=== PATIENT | male | born 1980 | race Caucasian/White ===

== ENCOUNTER 2021-01-07 13:44 | Observation (INO) ==
[2021-01-07] MEDS ORDERED: SALINE 3% 15 ML NEB TX ONE (17:47)
[2021-01-07] MEDS ORDERED: DUONEB 0.5 MG/3 MG (3 mL) NEB ONE (17:47)
[2021-01-07] MEDS ORDERED: NS 1000 ML 1,000 ML IV SCH (18:25)
[2021-01-07] MEDS ORDERED: NS 1000 ML 1,000 ML ONE (18:28)
[2021-01-07 18:48] LABS: ABG BASE EXCESS 3.7 mmol/L (-2.0-2.0); ABG HCO3 27.7 mmol/L (22-26)
[2021-01-07 18:49] LABS: ABG ALLEN TEST POS
[2021-01-07] MEDS: DUONEB 0.5 MG/3 MG (3 mL) NEB SCH (18:52)
[2021-01-07 19:12] LABS: BASOPHILS # (AUTO) 0.1 X10^3/uL (0.0-0.1); BASOPHILS % (AUTO) 0.4 % (0.2-1.0); EOSINOPHILS # (AUTO) 0.2 x10^3/uL (0.0-0.2); HEMATOCRIT 45.6 % (42.0-54.0); HEMOGLOBIN 15.3 g/dL (13.5-18.0); LYMPHOCYTES % (AUTO) 11.5 % (21.0-51.0); MEAN CORPUSCULAR HEMOGLOBIN 28.3 pg (27.0-34.0); MEAN CORPUSCULAR HGB CONC 33.6 g/dL (33.0-35.0); MEAN CORPUSCULAR VOLUME 84.1 fL (80.0-100.0); MEAN PLATELET VOLUME 7.7 fL (7.4-11.0); MONOCYTES # (AUTO) 1.1 x10^3/uL (0.3-0.8); MONOCYTES % (AUTO) 6.4 % (0.0-13.0); NEUTROPHILS # (AUTO) 13.9 x10^3/uL (2.2-4.8); NEUTROPHILS % (AUTO) 80.7 % (42.0-75.0); PLATELET COUNT 232 X10^3/uL (150.0-450.0); RED BLOOD COUNT 5.43 X10^6/uL (4.7-6.0); RED CELL DISTRIBUTION WIDTH 15.9 % (11.6-16.5); WHITE BLOOD COUNT 17.3 X10^3/uL (3.6-10.0)
[2021-01-07] MEDS ORDERED: PULMICORT NEB TX 0.5 MG NEB ONE (19:32)
[2021-01-07 19:36] LABS: ALANINE AMINOTRANSFERASE 52 Units/L (12-78); ALBUMIN 3.8 g/dL (3.4-5.0); ALKALINE PHOSPHATASE 150 Units/L (46-116); ASPARTATE AMINO TRANSFERASE 79 Units/L (15-37); BLOOD UREA NITROGEN 10 mg/dL (7-18); CALCIUM 9.1 mg/dL (8.5-10.1); CARBON DIOXIDE 25.7 mmol/L (21-32); CHLORIDE 103 mmol/L (98-107); CREATININE 1.38 mg/dL (0.70-1.30); FREE T4 (FREE THYROXINE) 0.79 ng/dL (0.76-1.46); SODIUM 141 mmol/L (136-145); TOTAL PROTEIN 8.2 g/dL (6.4-8.2); TSH (3RD GENERATION) 3.639 uIU/mL (0.358-3.74); eGFR NON BLACK RACES > 60 (>60)
[2021-01-07] MEDS: PULMICORT NEB TX 0.5 MG NEB SCH (20:15)
[2021-01-07] MEDS ORDERED: ELAVIL PO SCH (21:00)
[2021-01-07] MEDS ORDERED: VISTARIL PO SCH (21:00)
--- NOTE | 2021-01-07 21:28 | DR.H&P ---
H&P - History & Physical for Day of: H&P Date: 01/07/21 - History of Present Illness History of Present Illness: Patient is a 40 year old white male that presents to the [facility] office with reports cough x2 months. States that he has been coughing up blood tinged sputum. Reports that he has been feeling like food is stuck in his throat. States that he has been elevating his head up after eating and throughout the night. States that he has been coughing worse w henever he takes a deep breath in. CT Chest does reveal reveal complete atelectasis oat the posterior segment of the left lower lobe. ossible left lower hilar mass measuring 3cm. Possible subcarinal mass is seen measuring 5.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 Patient has history of 2PPD tobacco use. Denies any other complaints. - Past Medical History Past Medical History: Hypertension - Family History Family Medical History: Diabetes Mellitus, [place], Sudden Cardiac - Social History Does patient currently use any type of tobacco product: Yes Have you used tobacco products in the last 12 months: Yes Type of Tobacco Use: Cigarettes How many years tobacco product used: 30 Does any household member use tobacco: Yes Alcohol Use: None Drug Use: Prescription Drugs Risks, benefits, and alternatives of opioids discussed: No Prescription drug monitoring program results: PDMP reviewed and no concerns identified - Medications Home Medications: povidone-iodine [From Betadine] Allergy (Mild, Verified 01/07/21 19:11) RASH shrimp Allergy (Mild, Verified 01/07/21 19:11) soap [From Betadine] Allergy (Mild, Verified 01/07/21 19:11) RASH - Review of Systems Constitutional: Malaise Eyes: No Symptoms Reported ENT: No Symptoms Reported Respiratory: Cough, Shortness of Breath Cardiovascular: No Symptoms Reported Gastrointestinal: No Symptoms Reported Genitourinary: No Symptoms Reported Musculoskeletal: No Symptoms Reported Skin: No Symptoms Reported Neurological: No Symptoms Reported - Physical Exam Vital Signs: Temperature 98.3 F Pulse Rate [Right] 97 Pulse Rate 107 Respiratory Rate 20 Blood Pressure [Left Arm] 136/96 O2 Sat by Pulse Oximetry 97 Oriented: Normal Eyes: Normal Ear: Normal Nose: Normal Throat: Normal Respiratory: LLL Diminished Cardiovascular: Normal : Normal Auscultation: Bowel Sounds: Normal Palpation: Normal Tenderness: Normal Skin: Normal Musculoskeletal: Normal Psychiatric: Normal Mood Description: Calm Affect: Normal Speech Pattern: Clear - Assessment/Plan (1) Lung mass Status: Acute Plan: Pulmonology consult (2) Hemoptysis Status: Acute (3) Mass of both adrenal glands Status: Acute (4) Tobacco use Status: Acute Plan: Tobacco Cessation - Review H&P Reviewed: Yes Patient was examined?: Yes - Allergies Allergies/Adverse Reactions: Allergies Allergy/AdvReac Type Severity Reaction Status Date / Time povidone-iodine Allergy Mild RASH Verified 01/07/21 19:11 [From Betadine] shrimp Allergy Mild Verified 01/07/21 19:11 soap [From Betadine] Allergy Mild RASH Verified 01/07/21 19:11
--- NOTE | 2021-01-07 22:46 | RAD ---
EXAM: CHEST X-RAYHISTORY: Shortness of breath. COPD.TECHNIQUE: AP chest x-ray dated January 07, 2021 at 6:34 PM.COMPARISON: None available.FINDINGS:The heart size and mediastinum are within normal limits. The lung mora and costophrenic angles are clear. There is no acute parenchymal infiltrate, pleural effusion, or pneumothorax seen. The visualized bony structures are within normal limits.IMPRESSION:1. No evidence for acute cardiopulmonary disease seen.Electronically signed by: Teressa Gastelum (Jan 07, 2021 22:44:06)
[2021-01-08] MEDS: DUONEB 0.5 MG/3 MG (3 mL) NEB SCH ×4 (00:02→16:02)
[2021-01-08 04:50] LABS: BILIRUBIN,URINE NEGATIVE (NEGATIVE); BLOOD/HEMOGLOBIN,URINE 4+ (NEGATIVE); GLUCOSE, URINE NEGATIVE (NEGATIVE); KETONES,URINE NEGATIVE (NEGATIVE); LEUKOCYTE ESTERASE ,URINE NEGATIVE (NEGATIVE); NITRITES,URINE NEGATIVE (NEGATIVE); PROTEIN,URINE 2+ (NEGATIVE); UROBILINOGEN,URINE NORMAL (NORMAL)
[2021-01-08 04:54] LABS: APPEARANCE,URINE CLEAR (CLEAR); BACTERIA,URINE TRACE /HPF (NEGATIVE); COLOR,URINE YELLOW (YELLOW); SQUAMOUS EPITHELIAL CELL,UR FEW /HPF (NEGATIVE)
[2021-01-08 06:28] LABS: BASOPHILS # (AUTO) 0.1 X10^3/uL (0.0-0.1); BASOPHILS % (AUTO) 0.4 % (0.2-1.0); EOSINOPHILS # (AUTO) 0.2 x10^3/uL (0.0-0.2); EOSINOPHILS % (AUTO) 1.1 % (0.9-2.9); HEMATOCRIT 42.7 % (42.0-54.0); HEMOGLOBIN 14.3 g/dL (13.5-18.0); LYMPHOCYTES # (AUTO) 2.1 X10^3/uL (1.3-2.9); LYMPHOCYTES % (AUTO) 14.7 % (21.0-51.0); MEAN CORPUSCULAR HEMOGLOBIN 28.2 pg (27.0-34.0); MEAN CORPUSCULAR HGB CONC 33.4 g/dL (33.0-35.0); MEAN CORPUSCULAR VOLUME 84.3 fL (80.0-100.0); MEAN PLATELET VOLUME 8.1 fL (7.4-11.0); MONOCYTES % (AUTO) 6.6 % (0.0-13.0); NEUTROPHILS # (AUTO) 11.2 x10^3/uL (2.2-4.8); NEUTROPHILS % (AUTO) 77.2 % (42.0-75.0); PLATELET COUNT 212 X10^3/uL (150.0-450.0); RED BLOOD COUNT 5.07 X10^6/uL (4.7-6.0); RED CELL DISTRIBUTION WIDTH 15.9 % (11.6-16.5); WHITE BLOOD COUNT 14.5 X10^3/uL (3.6-10.0)
[2021-01-08 06:52] LABS: ALANINE AMINOTRANSFERASE 45 Units/L (12-78); ALBUMIN 3.3 g/dL (3.4-5.0); ALKALINE PHOSPHATASE 133 Units/L (46-116); ASPARTATE AMINO TRANSFERASE 75 Units/L (15-37); BLOOD UREA NITROGEN 12 mg/dL (7-18); CARBON DIOXIDE 27.4 mmol/L (21-32); CHLORIDE 104 mmol/L (98-107); COR CA(FOR HYPOALB) 9.6 mg/dL (8.5-10.1); CREATININE 1.07 mg/dL (0.70-1.30); SODIUM 141 mmol/L (136-145); TOTAL PROTEIN 7.4 g/dL (6.4-8.2); eGFR NON BLACK RACES > 60 (>60)
[2021-01-08] MEDS: PULMICORT NEB TX 0.5 MG NEB SCH (08:39)
--- NOTE | 2021-01-08 09:30 | PCM.PROG ---
Progress Note - Progress Note for Day of Date of Exam: 01/08/21 - Subjective Subjective: The patient is a 40yo WM who is admitted secondary tohemoptysis and bilateral lung masses. Also noted bilateral adrenal gland masses constistent with probable metastatitic disease. Patient noted to have hematuria and states he has freqent kidney stones. States he is not having pain at present. States that he has lost 20lbs in 2 mths. States that he does dip when doesn't smoke. Is wheezing and states the nebs help. Denies any acute needs at present. - Past Medical Family Social History Past Med/Fam/Surg Hx: No changes since H&P Allergies: Allergies povidone-iodine [From Betadine] Allergy (Mild, Verified 01/07/21 19:11) RASH shrimp Allergy (Mild, Verified 01/07/21 19:11) soap [From Betadine] Allergy (Mild, Verified 01/07/21 19:11) RASH - Review of Systems ROS: No change since H&P - Vital Signs and I&O's Vital Signs: Temperature 97.4 F Pulse Rate [Right] 90 Pulse Rate 90 Respiratory Rate 20 Blood Pressure [Right Arm] 112/71 Blood Pressure [Left Arm] 120/78 O2 Sat by Pulse Oximetry 97 Intake and Output: Intake & Output 01/05/21 01/06/21 01/07/21 01/08/21 23:59 23:59 23:59 23:59 Intake Total 100 / 100 826 / 826 Balance 100 / 100 826 / 826 - Physical Exam Oriented: Normal Eyes: Normal Ear: Normal Nose: Normal Throat: Normal Respiratory: Generalized, Wheezes Cardiovascular: Normal : Normal Auscultation: Bowel Sounds: Normal Palpation: Normal Tenderness: Normal Skin: Normal Musculoskeletal: Normal Psychiatric: Normal Mood Description: Calm Affect: Normal Speech Pattern: Clear - Laboratory and Diagnostics Result Diagrams: 01/08/21 05:29 01/08/21 05:29 Labs: 01/07/21 18:48 Sputum - Expectorated Sputum - Final Laboratory WBC 14.5 X10^3/uL (3.6-10.0) H 01/08/21 05:29 RBC 5.07 X10^6/uL (4.7-6.0) 01/08/21 05:29 Hgb 14.3 g/dL (13.5-18.0) 01/08/21 05:29 Hct 42.7 % (42.0-54.0) 01/08/21 05:29 MCV 84.3 fL (80.0-100.0) 01/08/21 05:29 MCH 28.2 pg (27.0-34.0) 01/08/21 05:29 MCHC 33.4 g/dL (33.0-35.0) 01/08/21 05:29 RDW 15.9 % (11.6-16.5) 01/08/21 05:29 Plt Count 212 X10^3/uL (150.0-450.0) 01/08/21 05:29 MPV 8.1 fL (7.4-11.0) 01/08/21 05:29 Neut % (Auto) 77.2 % (42.0-75.0) H 01/08/21 05:29 Lymph % (Auto) 14.7 % (21.0-51.0) L 01/08/21 05:29 [place] % (Auto) 6.6 % (0.0-13.0) 01/08/21 05:29 Eos % (Auto) 1.1 % (0.9-2.9) 01/08/21 05:29 Baso % (Auto) 0.4 % (0.2-1.0) 01/08/21 05:29 Neut # (Auto) 11.2 x10^3/uL (2.2-4.8) H 01/08/21 05:29 Lymph # (Auto) 2.1 X10^3/uL (1.3-2.9) 01/08/21 05:29 [place] # (Auto) 1.0 x10^3/uL (0.3-0.8) H 01/08/21 05:29 Eos # (Auto) 0.2 x10^3/uL (0.0-0.2) 01/08/21 05:29 Baso # (Auto) 0.1 X10^3/uL (0.0-0.1) 01/08/21 05:29 Absolute Nucleated RBC 0.1 /100WBC 01/08/21 05:29 Sample Site Rrad 01/07/21 18:40 ABG pH 7.460 (7.35-7.45) H 01/07/21 18:40 ABG pCO2 39.0 mmHg (35.0-45.0) 01/07/21 18:40 ABG pO2 73.0 mmHg (80.0-100.0) L 01/07/21 18:40 ABG HCO3 27.7 mmol/L (22-26) H 01/07/21 18:40 ABG O2 Saturation 95.0 % (90-100) 01/07/21 18:40 ABG Base Excess 3.7 mmol/L (-2.0-2.0) H 01/07/21 18:40 Natan Test Pos 01/07/21 18:40 A-a Gradient 28.0 mmHg 01/07/21 18:40 FiO2 21.0 01/07/21 18:40 Blood Gas Comments Pt jordyn well elj 01/07/21 18:40 Sodium 141 mmol/L (136-145) 01/08/21 05:29 Corrected Sodium TNP 01/08/21 05:29 Potassium 4.5 mmol/L (3.5-5.1) 01/08/21 05:29 Chloride 104 mmol/L (98-107) 01/08/21 05:29 Carbon Dioxide 27.4 mmol/L (21-32) 01/08/21 05:29 BUN 12 mg/dL (7-18) 01/08/21 05:29 Creatinine 1.07 mg/dL (0.70-1.30) 01/08/21 05:29 Est GFR (MDRD) Af Amer > 60 (>60) 01/08/21 05:29 Est GFR (MDRD) Non-Af > 60 (>60) 01/08/21 05:29 Glucose 86 mg/dL (65-99) 01/08/21 05:29 Calcium 9.0 mg/dL (8.5-10.1) 01/08/21 05:29 Corrected Calcium 9.6 mg/dL (8.5-10.1) 01/08/21 05:29 Total Bilirubin 0.40 mg/dL (0.2-1.0) 01/08/21 05:29 AST 75 Units/L (15-37) H 01/08/21 05:29 ALT 45 Units/L (12-78) 01/08/21 05:29 Alkaline Phosphatase 133 Units/L (46-116) H 01/08/21 05:29 Total Protein 7.4 g/dL (6.4-8.2) 01/08/21 05:29 Albumin 3.3 g/dL (3.4-5.0) L 01/08/21 05:29 Globulin 4.1 g/dL (2.5-4.5) 01/08/21 05:29 Albumin/Globulin Ratio 0.8 Ratio (1.1-2.1) L 01/08/21 05:29 Free T4 0.79 ng/dL (0.76-1.46) 01/07/21 18:51 TSH 3rd Generation 3.639 uIU/mL (0.358-3.74) 01/07/21 18:51 Specimen Type Clean catch urine 01/08/21 04:39 Urine Color Yellow (YELLOW) 01/08/21 04:39 Urine Appearance Clear (CLEAR) 01/08/21 04:39 Urine pH 6.0 (5.0 - 8.0) 01/08/21 04:39 Ur Specific [place] 1.020 (1.000-1.030) 01/08/21 04:39 Urine Protein 2+ (NEGATIVE) 01/08/21 04:39 Urine Glucose (UA) Negative (NEGATIVE) 01/08/21 04:39 Urine Ketones Negative (NEGATIVE) 01/08/21 04:39 Urine Occult Blood 4+ (NEGATIVE) 01/08/21 04:39 Urine Nitrite Negative (NEGATIVE) 01/08/21 04:39 Urine Bilirubin Negative (NEGATIVE) 01/08/21 04:39 Urine Urobilinogen Normal (NORMAL) 01/08/21 04:39 Ur Leukocyte Esterase Negative (NEGATIVE) 01/08/21 04:39 Urine RBC 3-5 /HPF (0-3) A 01/08/21 04:39 Urine WBC 0-2 /HPF (0-5) 01/08/21 04:39 Ur Squamous Epith Cells Few /HPF (NEGATIVE) 01/08/21 04:39 Urine Bacteria Trace /HPF (NEGATIVE) 01/08/21 04:39 Ur Culture Indicated? No/not indicated 01/08/21 04:39 SARS CoV-2 RNA Rapid DUSTIN Negative (NEGATIVE) 01/07/21 16:20 - Plan (1) COPD (chronic obstructive pulmonary disease) with acute bronchitis Status: Acute Plan: nebs, steriods, antbiotics (2) Lung mass Status: Acute Plan: Pulmonology consult (3) Hemoptysis Status: Acute (4) Mass of both adrenal glands Status: Acute (5) Tobacco use Status: Acute Plan: Tobacco Cessation
[2021-01-08] MEDS ORDERED: LEVAQUIN PREMIX IV 500 MG 500 MG/100 ML BAG IV SCH (10:00)
[2021-01-08] MEDS ORDERED: SOLU-Medrol 125 MG VIAL IVP SCH (10:00)
[2021-01-08] MEDS ORDERED: SOLU-Medrol 40 MG VIAL IVP SCH (14:00)
[2021-01-08 16:24] VITALS: BMI 32.2
[2021-01-08 16:40] VITALS: BP 120/80
[2021-01-08] MEDS ORDERED: VISTARIL PO ONE (21:00)
--- NOTE | 2021-01-20 20:59 | W.DIS.FURT ---
Discharge Plan - Discharge Plan Hospital Course: The patient is a 40yo WM who is admitted secondary tohemoptysis and bilateral lung masses. Also noted bilateral adrenal gland masses constistent with probable metastatitic disease. Patient noted to have hematuria and states he has freqent kidney stones. States he is not having pain at present. States that he has lost 20lbs in 2 mths. States that he does dip when doesn't smoke. Is wheezing and states the [facility] help. Patient was tansferred to [facility] under care pf Dr Vicente mack for further workup. Condition: Stable Assessment: Lung Mass Bilateral Adrenal Gland Mass Tobacco Abuse Prescriptions: No Action albuterol sulfate 2.5 mg /3 mL (0.083 %) solution for nebulization 2.5 mg inhalation TID PRN allopurinol 300 mg tablet 300 mg PO DAILY amitriptyline 100 mg tablet 100 mg PO DAILY citalopram 20 mg tablet 20 mg PO DAILY hydroxyzine pamoate 50 mg capsule 50 mg PO HS lisinopril 20 mg tablet 20 mg PO DAILY - Orders to Discharge Patient Discharge Orders: Discharge by Transfer to Outside Facility (Routine); Ordered 01/19/21 Ordered By: KEYLA MARMOLEJO - Instructions Print Language: VIETNAMESE
== END 2021-01-08 17:20 | disposition home or self-care (01) ==
LOC: MED/SURG → ICU 18:09 → MED/SURG 18:11
PROVIDERS: ADMIT Internal Medicine; ATTEND Internal Medicine
DX: J20.8 Acute bronchitis due to other specified organisms; J44.0 Chronic obstructive pulmonary disease with (acute) lower respiratory infection; E11.65 Type 2 diabetes mellitus with hyperglycemia; R91.8 Other nonspecific abnormal finding of lung field; Z20.822 Contact with and (suspected) exposure to COVID-19; Z72.0 Tobacco use; R06.02 Shortness of breath; R04.2 Hemoptysis